=== PATIENT | female | born 1960 | race Asian ===

== ENCOUNTER 2024-11-10 10:56 | Outpatient (CLI) | payer OTHER | END 2024-11-10 10:57 | disposition home or self-care (01) | LOC: CSHMAMMO 10:56 | PROVIDERS: ATTEND Family Medicine | DX: Z12.31 Encounter for screening mammogram for malignant neoplasm of breast (principal); Z78.0 Asymptomatic menopausal state; M85.88 Other specified disorders of bone density and structure, other site | CPT/HCPCS: 77063; 77067; 77080 ==